=== PATIENT | male | born 1940 | race Two or more races ===

== ENCOUNTER 2018-12-11 08:16 | Outpatient (CLI) | payer OTHER | END 2018-12-11 08:24 | disposition home or self-care (01) | LOC: SONOGRAMA 08:16 | DX: F41.8 Other specified anxiety disorders (principal); G62.89 Other specified polyneuropathies; I10 Essential (primary) hypertension; M15.8 Other polyosteoarthritis; M54.5 Low back pain; M89.8X8 Other specified disorders of bone, other site; N40.0 Benign prostatic hyperplasia without lower urinary tract symptoms; N41.8 Other inflammatory diseases of prostate; E78.89 Other lipoprotein metabolism disorders ==

== ENCOUNTER → 2019-12-14 | Outpatient (CLI) | payer OTHER | END | disposition home or self-care (01) | LOC: NUCLEAR 12:57 | PROVIDERS: ATTEND Internal Medicine Hematology & Oncology | DX: D70.8 Other neutropenia (principal); D53.8 Other specified nutritional anemias; D69.49 Other primary thrombocytopenia | CPT/HCPCS: 78215; A9541 ==

== ENCOUNTER 2021-11-24 07:12 | Emergency (ER) | payer OTHER ==
[~2021-11-24] VITALS: Ht 172.7 cm; Wt 89.8 kg
[2021-11-24] MEDS ORDERED: ADVIL200 M1 PO (07:23)
[2021-11-24] MEDS ORDERED: COZAAR25 MG PO (07:23)
[2021-11-24] MEDS ORDERED: MUCINEX1200 MG PO (12:34)
[2021-11-24] MEDS ORDERED: BENZONATATE200 M1 PO (12:34)
== END 2021-11-24 14:27 | disposition home or self-care (01) ==
LOC: ER 07:12
DX: R06.02 Shortness of breath (principal); I10 Essential (primary) hypertension; Z20.822 Contact with and (suspected) exposure to COVID-19

== ENCOUNTER 2023-11-14 07:54 | Outpatient (CLI) | payer OTHER ==
[~2023-11-14 07:54] MED LIST: ADVIL200 M1 PO; BENZONATATE200 M1 PO; COZAAR25 MG PO; MUCINEX1200 MG PO
== END 2023-11-14 08:05 | disposition home or self-care (01) ==
LOC: SONOGRAMA 07:54
PROVIDERS: ATTEND Internal Medicine Gastroenterology
DX: R10.9 Unspecified abdominal pain (principal)

== ENCOUNTER 2023-12-11 08:09 | Outpatient (CLI) | payer OTHER | END 2023-12-11 08:14 | disposition home or self-care (01) | LOC: TOM 08:09 | PROVIDERS: ATTEND Internal Medicine Gastroenterology | DX: R10.9 Unspecified abdominal pain (principal) ==

== ENCOUNTER 2024-07-13 14:21 | Outpatient (CLI) | payer OTHER | END 2024-07-13 14:22 | disposition home or self-care (01) | LOC: RAD 14:21 | PROVIDERS: ATTEND Specialist | DX: J45.998 Other asthma (principal) ==